=== PATIENT | male | born 1995 | race African-American/Black ===

== ENCOUNTER 2021-09-17 11:13 | Inpatient (IN) | payer SELFPAY ==
[~2021-09-17] VITALS: Ht 182.9 cm; Wt 68.0 kg
[2021-09-17] MEDS ORDERED: LORAZEPAM INJ 2 MG/ML VIAL IM ONE (12:00)
[2021-09-17] MEDS ORDERED: IV NS 0.9% 1,000 ML BAG IV ONE ×2 (12:00→14:30)
--- NOTE | 2021-09-17 12:00 | NUR ---
[facility] 86 AND [employer] FROM [facility] C/O METH USED. PATIENT ALERT AND ORIENTED TO SELF, HYPERVERBAL. PATIENT IN BED, SITTER AT BEDSIDE.
[2021-09-17] MEDS ORDERED: LORAZEPAM INJ 2 MG/ML VIAL ONE (12:25)
[2021-09-17 12:40] LABS: BASOPHILS # (AUTO) 0.1 K/uL (0.0-0.2); BASOPHILS % (AUTO) 0.5 % (0.0-2.0); EOSINOPHILS % (AUTO) 0.2 % (0.0-6.0); HEMATOCRIT 43 % (39-51); LYMPHOCYTES % (AUTO) 7.1 % (20.0-44.0); MEAN CORPUSCULAR HGB CONC 33 g/dl (31.0-36.0); MEAN CORPUSCULAR VOLUME 89 fL (80-96); MONOCYTES # (AUTO) 1.7 K/uL (0.1-1.30); MONOCYTES % (AUTO) 6.1 % (2.0-12.0); NEUTROPHILS # (AUTO) 24.5 K/uL (1.8-8.9); NEUTROPHILS % (AUTO) 86.1 % (43.0-81.0); PLATELET COUNT (AUTO) 542 K/uL (150-450); RED BLOOD CELL COUNT(AUTO) 4.77 MIL/uL (4.5-6.0); WHITE BLOOD COUNT (AUTO) 28.4 K/uL (4.3-11.0)
--- NOTE | 2021-09-17 13:05 | NUR ---
URINE COLLECTED AND SENT TO THE LAB
[2021-09-17 13:21] LABS: ALANINE AMINOTRANSFERASE 20 U/L (12-78); ALBUMIN 3.7 g/dL (3.4-5.0); ALKALINE PHOSPHATASE 96 U/L (46-116); ASPARTATE AMINOTRANSFERASE 34 U/L (15-37); BILIRUBIN,DIRECT 0.2 mg/dL (0.0-0.2); BILIRUBIN,TOTAL 0.8 mg/dL (0.2-1.0); CALCIUM, SERUM 9.6 mg/dL (8.5-10.1); CARBON DIOXIDE 24 mmol/L (21-32); CHLORIDE 98 mmol/L (98-107); GLUCOSE 84 mg/dL (74-106); POTASSIUM 5.7 mmol/L (3.5-5.1); SODIUM SERUM 136 mmol/L (136-145); TOTAL PROTEIN, SERUM 7.9 g/dL (6.4-8.2); UREA NITROGEN, BLOOD 22 mg/dL (7-18)
[2021-09-17] MEDS ORDERED: diphenhydrAMINE HCL 50 MG/ML VIAL ONE (13:21)
[2021-09-17] MEDS ORDERED: HALOPERIDOL LACTATE INJ 5 MG/ML VIAL ONE (13:21)
[2021-09-17 13:26] LABS: ACETAMINOPHEN 0 ug/ml (10-30); ALCOHOL, BLOOD < 3 mg/dL (0-0)
[2021-09-17] MEDS ORDERED: HALOPERIDOL LACTATE INJ 5 MG/ML VIAL IM ONE (13:30)
[2021-09-17] MEDS ORDERED: diphenhydrAMINE HCL 50 MG/ML VIAL IM ONE (13:30)
[2021-09-17 14:02] LABS: BILIRUBIN,URINE NEGATIVE (NEGATIVE); COLOR,URINE YELLOW (YELLOW); LEUKOCYTE ESTERASE ,URINE NEGATIVE (NEGATIVE); NITRITE, URINE NEGATIVE (NEGATIVE); PROTEIN,URINE NEGATIVE (NEGATIVE); UGLUCOSE NEGATIVE (NEGATIVE); UROBILINOGEN,URINE 0.2 EU/dL (0.2)
--- NOTE | 2021-09-17 14:56 | NUR ---
COVID ANTIGEN SWAB DONE AND SENT TO THE LAB
[2021-09-17 15:10] LABS: BACTERIA,URINE None seen /HPF (None Seen); SQUAMOUS EPITHELIAL CELL,UR 0-2 /HPF (None Seen); WBC,URINE 0-2 /HPF (0-3)
--- NOTE | 2021-09-17 15:30 | NUR ---
THE PATIENT IS ALERT AND ORIENTED X3. THE PATIENT IS CALM AND COOPERATIVE. WATCHING TV. DENIES PAIN. IN ROOM AIR AND DENIES SOB. RESPIRATION REGULAR AND UNLABORED.
--- NOTE | 2021-09-17 16:10 | NUR ---
NURSING SHIPFITTERS SUPERVISOR CALLED FOR TELE BED. PER SHIPFITTERS SUPERVISOR NO AVAILABLE BED AT THIS TIME.
--- NOTE | 2021-09-17 16:15 | NUR ---
THE PATIENT IS SERVED SNACKS. TOLERATES WELL. WILL CONTINUE TO MONITOR THE PATIENT.
--- NOTE | 2021-09-17 16:20 | NUR ---
PT COOPERATIVE AND COMPLIANT WITH CARE. ALL NEEDS MET AT THIS TIME. TOLERATING R/A WELL WITH NO SOB
[2021-09-17 16:21] LABS: BAND % (MANUAL) 1 % (0.0-5.0); LYMPHOCYTES % (MANUAL) 10 % (16-48); MONOCYTES % (MANUAL) 8 % (0-11.0); NEUTROPHILS % (MANUAL) 81 (42-76)
--- NOTE | 2021-09-17 16:31 | NUR ---
REQUESTED BED FROM NURSING [employer] SPLITTER BUT PER CARCASS SPLITTER THERE IS NO AVAILABLE BED AT THIS TIME.
--- NOTE | 2021-09-17 17:44 | NUR ---
REPORT GIVEN TO NURSE IRVING FOR [facility]ARY
--- NOTE | 2021-09-17 18:21 | NUR ---
PT TRANSFERRED TO [facility] VIA ACLS PROTOCOL. ALL BELONGINGS WITH PT. VSS
[2021-09-17] MEDS ORDERED: OLANZAPINE 10 MG VIAL IM PRN (19:00)
[2021-09-17] MEDS ORDERED: ENOXAPARIN SODIUM 40 MG/0.4 ML DISP.SYRIN SQ SCH (19:00)
[2021-09-17] MEDS ORDERED: CEFTRIAXONE 1 G in IV D5W 50 ML IV SCH (19:00)
[2021-09-17] MEDS ORDERED: ACETAMINOPHEN 325 MG TABLET PO PRN (19:00)
[2021-09-17] MEDS ORDERED: ONDANSETRON HCL/PF 4 MG/2 ML VIAL IVP PRN (19:00)
[2021-09-17] MEDS ORDERED: MAGNESIUM HYDROXIDE 30 ML UDC PO PRN (19:00)
[2021-09-17] MEDS ORDERED: Z GUARD REMEDY 2 OZ OINT TP PRN (19:00)
[2021-09-17] MEDS ORDERED: ZOLPIDEM TARTRATE 5 MG TABLET PO PRN (19:00)
[2021-09-17] MEDS ORDERED: IV NS 0.9% 1,000 ML IV PRN (19:00)
[2021-09-17] MEDS ORDERED: MAG HYDROX/AL HYDROX/SIMETH 30 ML UDC PO PRN (19:00)
--- NOTE | 2021-09-17 20:00 | NUR ---
MS MEDICAL RESEARCH ASSISTANT NOTES RECEIVED LAYING ON BED A/O X3,BREATHING EASY TO SOB,SALINE LOCK LEFT AC INTACT AND PATENT.CALL LIGHT IN REACH,NEEDS ANTICIPATED.
--- NOTE | 2021-09-17 20:12 | NUR ---
MS RN NOTES ORAL TEMP OF 101,TYLENOL 650MG PO GIVE, TAKEN WELL.
--- NOTE | 2021-09-17 20:16 | NUR ---
MS RN NOTES STARTED ON LOVENOX 40MG GIVEN SQ ORDERED
--- NOTE | 2021-09-17 20:20 | NUR ---
MS RN NOTES STARTED ON ROCEPHIN 1GM IVPB ORDERED.
[2021-09-17 22:00] VITALS: BP 113/66
--- NOTE | 2021-09-17 23:30 | NUR ---
MS RN NOTES AWAKE,PULLED OUT HIS SALINE LOCK,OFFERED TO HAVE A NEW SALINE LOCK BUT REFUSED
--- NOTE | 2021-09-17 23:30 | NUR ---
MS RN NOTES FEELING HUNGRY,ALREADY GIVEN 2 SANDWICH AND ASKED AGAIN FOR ANOTHER ONE.
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
--- NOTE | 2021-09-18 04:00 | NUR ---
MS RN NOTES AWAKE,YELLING TO RN TELEPHONE TRIAGE,LOOKING FOR HIS SHOES,HE WANTS TO GET OUT OF THE HOSPITAL,NO HOLD
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
--- NOTE | 2021-09-18 04:10 | NUR ---
MS RN NOTES HOSPITALIST YAYO MADE AWARE.
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
== END 2021-09-18 04:00 | disposition left against medical advice (07) | DRG 917 ==
LOC: EDBD 11:48 → ER 11:48 → TELE 17:38 → MED 20:42
PROVIDERS: ADMIT Nurse Practitioner Acute Care; ATTEND Nurse Practitioner Acute Care
DX: T43.621A Poisoning by amphetamines, accidental (unintentional), initial encounter (principal); G92.9 Unspecified toxic encephalopathy; N17.0 Acute kidney failure with tubular necrosis; Y92.039 Unspecified place in apartment as the place of occurrence of the external cause; E87.5 Hyperkalemia; D72.829 Elevated white blood cell count, unspecified; D75.839 Thrombocytosis, unspecified; F19.159 Other psychoactive substance abuse with psychoactive substance-induced psychotic disorder, unspecified; Z20.822 Contact with and (suspected) exposure to COVID-19; Z87.891 Personal history of nicotine dependence
CPT/HCPCS: 36415; 71045-TC; 80048-TC; 80076-TC; 81001; 82550-TC; 83605-TC; 84484-TC; 85025-TC; 87040-TC; 87081-TC; C9803; G0378; G0480; J0696; J1200; J1630; J1650; J2060; J7030; J7060